=== PATIENT | female | born 1975 | race Caucasian/White ===

== ENCOUNTER 2024-09-02 10:40 | Day surgery (SDC) | payer OTHER ==
[~2024-09-02] VITALS: Ht 167.6 cm; Wt 54.3 kg
[2024-09-02] MEDS: ONDANSETRON 4MG 2ML VIAL IV ONE (11:27)
[2024-09-02] MEDS: KETOROLAC 30 MG/ML 1ML VIAL IV ONE (11:27)
[2024-09-02 11:30] LABS: BASO % 0.1 % (0.0-1.0); HEMATOCRIT 36.1 % (36.0-47.0); HEMOGLOBIN 11.8 g/dl (12.0-15.5); LYMPH # 0.8 10^3/uL (1.5-5.0); LYMPH % 9.7 % (24.0-44.0); MEAN CORPUSCULAR HEMOGLOBIN 29.1 pg (27.0-33.0); MEAN CORPUSCULAR HGB CONC 32.7 g/dl (32.0-36.5); MEAN CORPUSCULAR VOLUME 88.9 fl (80.0-96.0); MONO # 0.5 10^3/uL (0.0-0.8); MONO % 6.5 % (2.0-8.0); NEUTROPHILS # 6.8 10^3/uL (1.5-8.5); NEUTROPHILS % 83.5 % (36.0-66.0); PLATELET COUNT, AUTOMATED 255 10^3/uL (150-450); RED BLOOD COUNT 4.06 10^6/uL (4.00-5.40); WHITE BLOOD COUNT 8.1 10^3/uL (4.0-10.0)
[2024-09-02 11:35] LABS: KETONE, URINE AUTO RFX TRACE mg/dL (NEGATIVE); LEUKOCYTE ESTERASE UR AUTO RFX NEGATIVE (NEGATIVE); MUCUS, URINE RFX SMALL (NEGATIVE); NITRITE, URINE AUTO RFX NEGATIVE (NEGATIVE); RBC, URINE AUTO RFX 1 /HPF (0-3); SQUAM EPITHELIAL CELL UR AURFX 4 /HPF (0-6); WBC, URINE AUTO RFX 1 /HPF (0-3)
[2024-09-02 12:02] LABS: LIPASE 25 U/L (12-53)
[2024-09-02 12:04] LABS: ALBUMIN 3.7 G/DL (3.2-5.2); ALKALINE PHOSPHATASE 59 U/L (35-104); ALT/SGPT < 9 U/L (7.0-40); AST/SGOT 10 U/L (<34); BILIRUBIN,DIRECT 0.2 MG/DL (<0.4); BILIRUBIN,TOTAL 0.6 MG/DL (0.3-1.2); BLOOD UREA NITROGEN 11 MG/DL (9-23); CALCIUM LEVEL 7.9 MG/DL (8.5-10.1); CARBON DIOXIDE LEVEL 29 MMOL/L (20-31); CHLORIDE LEVEL 101 MMOL/L (98-107); GLOMERULAR FILTRATION RATE > 60.0 (>58); GLUCOSE, FASTING 88 MG/DL (60-100); POTASSIUM SERUM 4.3 MMOL/L (3.5-5.1); SODIUM LEVEL 140 MMOL/L (136-145); TOTAL PROTEIN 6.7 G/DL (5.7-8.2)
[2024-09-02] MEDS ORDERED: ISOVUE-370 76% 100ML VIAL As Ordered ONE (12:09)
[2024-09-02 12:22] LABS: HCG, SERUM QUALITATIVE NEGATIVE (NEGATIVE)
[2024-09-02] MEDS: PIPERACILLIN/TAZOBACTAM SOD 3.375 GM in DEXTROSE 5% (D5W) ADV/MINI-BAG 50 ML IV ONE (13:40)
[2024-09-02] MEDS ORDERED: HOME MED LIST COMPLETE! XX SCH (13:50)
[2024-09-02] MEDS ORDERED: diphenhydrAMINE 50MG/ML VIAL IV PRN (17:55)
[2024-09-02] MEDS ORDERED: NALBUPHINE HCL 10 MG/ML 1ML AMP IV PRN (17:55)
[2024-09-02] MEDS ORDERED: LR 1,000 ML IV SCH (17:55)
[2024-09-02] MEDS ORDERED: NORCO, ANEXSIA 5/325MG TABLET (HYDROcodone/ACETAMINOPHEN) PO PRN (17:55)
[2024-09-02] MEDS ORDERED: PROMETHAZINE 25MG/ML 1ML VIAL IV PRN (17:55)
[2024-09-02] MEDS ORDERED: propofoL 200 MG/20 ML VIAL As Ordered ONE (18:48)
[2024-09-02] MEDS ORDERED: fentaNYL 100 MCG/2 ML INJECTION As Ordered ONE (18:48)
[2024-09-02] MEDS ORDERED: MIDAZOLAM INJ 2MG/2ML VIAL As Ordered ONE (18:48)
[2024-09-02] MEDS ORDERED: ROCURONIUM BROMIDE 50MG/5ML VIAL As Ordered ONE (18:48)
[2024-09-02] MEDS ORDERED: LIDOCAINE 2% 100MG/5ML SDV (FOR ANES.) As Ordered ONE (18:48)
[2024-09-02] MEDS ORDERED: ONDANSETRON 4MG 2ML VIAL IV PRN (19:15)
[2024-09-02] MEDS ORDERED: ONDANSETRON 4MG 2ML VIAL As Ordered ONE (19:21)
[2024-09-02] MEDS: ZOSYN 3.375GM VIAL As Ordered ONE (19:24)
[2024-09-02] MEDS ORDERED: ACETAMINOPHEN 1000MG/100ML IV BAG As Ordered ONE (19:25)
[2024-09-02] MEDS ORDERED: SUGAMMADEX SODIUM 500 MG/5 ML VIAL (BRIDION) As Ordered ONE (19:35)
[2024-09-02] MEDS ORDERED: KETOROLAC 60MG 2ML VIAL As Ordered ONE (19:40)
[2024-09-02] MEDS ORDERED: HYDR-3715 PO (20:00)
[2024-09-02] MEDS: HYDROMORPHONE HCL 0.5 MG/ 0.5 ML SYRINGE IV PRN (20:03)
[2024-09-02 21:15] VITALS: BP 101/50; TEMP 97.8; O2SAT 100
[2024-09-02 21:44] VITALS: BP 90/56; TEMP 98.7; O2SAT 98
[2024-09-02] MEDS: NS (Normal Saline) 0.9% 1,000 ML IV SCH (22:12)
[2024-09-02] MEDS: NICOTINE 21MG/24HR 1 EA TRANSDERMAL TD ONE (22:13)
[2024-09-02] MEDS: SENOKOT S TAB PO SCH (22:13)
[2024-09-02] MEDS: NORCO, ANEXSIA 5/325MG TABLET (HYDROcodone/ACETAMINOPHEN) PO PRN (22:14)
[2024-09-02 22:15] VITALS: BP 84/46; TEMP 98.1; O2SAT 97
[2024-09-02] MEDS: KETOROLAC 30 MG/ML 1ML VIAL IV PRN (22:15)
[2024-09-02] MEDS: NS (Normal Saline) 0.9% 1,000 ML IV ONE (22:34)
[2024-09-02 23:15] VITALS: BP 88/51; TEMP 97.9
[2024-09-03] VITALS: BP 95/52; TEMP 97.4; TEMP 97.9; O2SAT 98
[2024-09-03 00:09] VITALS: BP 92/50
[2024-09-03] MEDS: PIPERACILLIN/TAZOBACTAM SOD 3.375 GM in DEXTROSE 5% (D5W) ADV/MINI-BAG 50 ML IV SCH (00:19)
[2024-09-03 01:00] VITALS: BP 90/50; TEMP 97.7; O2SAT 99
[2024-09-03 02:00] VITALS: BP 101/59; TEMP 97.7; O2SAT 99
[2024-09-03 05:35] VITALS: BP 116/65; TEMP 97.9; O2SAT 97
[2024-09-03 06:13] LABS: HEMATOCRIT 31.4 % (36.0-47.0); HEMOGLOBIN 10.1 g/dl (12.0-15.5); MEAN CORPUSCULAR HEMOGLOBIN 28.6 pg (27.0-33.0); MEAN CORPUSCULAR HGB CONC 32.2 g/dl (32.0-36.5); PLATELET COUNT, AUTOMATED 225 10^3/uL (150-450); RED BLOOD COUNT 3.53 10^6/uL (4.00-5.40); WHITE BLOOD COUNT 6.5 10^3/uL (4.0-10.0)
== END 2024-09-03 08:39 | disposition home or self-care (01) ==
LOC: M ED 10:40 → M SDC 16:28 → M RR INP 16:29 → UNDOADMOB 16:29 → M MSPAV 21:01 → M RR INP 21:01 → M SDC 09-03 08:39 → UNDODISOB 09-03 08:39
PROVIDERS: ATTEND Surgery
DX: K35.80 Unspecified acute appendicitis (principal); M54.9 Dorsalgia, unspecified; Z98.51 Tubal ligation status; F17.290 Nicotine dependence, other tobacco product, uncomplicated
CPT/HCPCS: 36415; 44970; 80047; 80048; 80076; 81001; 83690; 84703; 85025; 85027; 88304; 96365; 96366; 96375; 96376; 99284; J0131; J0665; J1100; J1171; J1885; J2250; J2405; J2543; J3010; Q9967

== ENCOUNTER 2024-10-08 02:28 | Emergency (ER) | payer OTHER ==
[~2024-10-08] VITALS: Ht 170.2 cm; Wt 55.0 kg
[~2024-10-08 02:28] MED LIST: HYDR-3715 PO
[2024-10-08 03:41] LABS: VENOUS BASE EXCESS 0.6 (-2.0-2.0); VENOUS PARTIAL PRESSURE CO2 44.8 mmHg (38.0-50.0); VENOUS PARTIAL PRESSURE O2 147.2 mmHg (30.0-50.0); VENOUS PH 7.382 UNITS (7.330-7.430); VENOUS STANDARD HCO3 25.1 MMOL/L; VENOUS TOTAL CO2 27.4 MMOL/L (24.0-28.0)
[2024-10-08 03:46] LABS: IONIZED CALCIUM 4.4 MG/DL (4.5-5.3)
[2024-10-08 04:00] LABS: HEMATOCRIT 33.2 % (36.0-47.0); MEAN CORPUSCULAR HEMOGLOBIN 28.4 pg (27.0-33.0); MEAN CORPUSCULAR HGB CONC 33.1 g/dl (32.0-36.5); MEAN CORPUSCULAR VOLUME 85.8 fl (80.0-96.0); PLATELET COUNT, AUTOMATED 268 10^3/uL (150-450); RED BLOOD COUNT 3.87 10^6/uL (4.00-5.40); WHITE BLOOD COUNT 5.6 10^3/uL (4.0-10.0)
[2024-10-08 04:13] LABS: AMPHETAMINES LEVEL URINE NEGATIVE (NEGATIVE); BARBITURATES URINE NEGATIVE (NEGATIVE); BENZODIAZEPINES URINE NEGATIVE (NEGATIVE); CANNABINOIDS URINE NEGATIVE (NEGATIVE); COCAINE METABOLITE URINE NEGATIVE (NEGATIVE); METHADONE URINE NEGATIVE (NEGATIVE); OPIATES URINE NEGATIVE (NEGATIVE); PHENCYCLIDINE URINE NEGATIVE (NEGATIVE)
[2024-10-08 04:17] LABS: ALBUMIN 3.3 G/DL (3.2-5.2); ALKALINE PHOSPHATASE 54 U/L (35-104); ALT/SGPT 9 U/L (7.0-40); AST/SGOT 8 U/L (<34); BILIRUBIN,DIRECT < 0.1 MG/DL (<0.4); BILIRUBIN,TOTAL 0.2 MG/DL (0.3-1.2); BLOOD UREA NITROGEN 11 MG/DL (9-23); CALCIUM LEVEL 7.6 MG/DL (8.5-10.1); CARBON DIOXIDE LEVEL 27 MMOL/L (20-31); CHLORIDE LEVEL 104 MMOL/L (98-107); CREATININE FOR GFR 0.63 MG/DL (0.55-1.30); GLOMERULAR FILTRATION RATE > 90.0 (>58); GLUCOSE, FASTING 90 MG/DL (60-100); MAGNESIUM LEVEL 1.7 MG/DL (1.8-2.4); PHOSPHORUS LEVEL 2.4 MG/DL (2.5-4.9); POTASSIUM SERUM 3.9 MMOL/L (3.5-5.1); SODIUM LEVEL 138 MMOL/L (136-145); TOTAL PROTEIN 5.8 G/DL (5.7-8.2)
[2024-10-08 04:19] LABS: PROLACTIN 61.11 NG/ML
[2024-10-08 04:29] LABS: LYMPHOCYTES 24 % (16-44); MONOCYTES 11 % (0-5); NEUTROPHILS 65 % (28-66)
[2024-10-08 04:30] LABS: PLATELET ESTIMATE NORMAL (NORMAL)
[2024-10-08] MEDS ORDERED: KEPP1TAB PO (05:40)
[2024-10-08] MEDS: levETIRAcetam INJection 1,000 MG in IV 1 EA IV ONE (05:59)
[2024-10-08] MEDS: CALCIUM GLUCONATE 1,000 MG in DEXTROSE 5% (D5W) MINI-BAG PLU 100 ML IV ONE (06:24)
[2024-10-08] MEDS: MAG SULF 1GM/100ML (MAG RUN) 1 GM in IV 1 EA IV ONE (06:24)
[2024-10-08 07:56] VITALS: BP 106/59; TEMP 96.8; O2SAT 99
== END 2024-10-08 07:57 | disposition home or self-care (01) ==
LOC: M ED 02:28 → EDBD 02:28 → M ED 07:57
DX: G40.89 Other seizures (principal); Z79.899 Other long term (current) drug therapy
CPT/HCPCS: 70450; 80048; 80076; 80307; 82140; 82330; 82803; 83605; 83735; 84100; 84146; 85025; 87486; 87581; 87633; 87798; 93041; 94760; 96365; 96366; 99285; J0612; J1953; J3475

== ENCOUNTER 2025-06-22 03:11 | Emergency (ER) | payer OTHER ==
[~2025-06-22] VITALS: Ht 167.6 cm; Wt 55.7 kg
[~2025-06-22 03:11] MED LIST changes: +KEPP1TAB PO
[2025-06-22 04:33] LABS: ALT/SGPT 13 U/L (7.0-40); AST/SGOT 21 U/L (<34); CALCIUM LEVEL 8.0 MG/DL (8.5-10.1); CARBON DIOXIDE LEVEL 27 MMOL/L (20-31); CHLORIDE LEVEL 106 MMOL/L (98-107); CREATININE FOR GFR 0.78 MG/DL (0.55-1.30); GLOMERULAR FILTRATION RATE > 90.0 (>58); MAGNESIUM LEVEL 1.7 MG/DL (1.8-2.4); PHOSPHORUS LEVEL 3.1 MG/DL (2.5-4.9); POTASSIUM SERUM 4.7 MMOL/L (3.5-5.1); SODIUM LEVEL 143 MMOL/L (136-145)
[2025-06-22 04:35] LABS: PROLACTIN 64.20 NG/ML
[2025-06-22 04:36] LABS: BASO # 0.0 10^3/uL (0.0-0.2); BASO % 0.3 % (0.0-1.0); EOS # 0.0 10^3/uL (0.0-0.5); EOS % 0.3 % (0.0-3.0); LYMPH # 1.4 10^3/uL (1.5-5.0); LYMPH % 35.6 % (24.0-44.0); MONO # 0.4 10^3/uL (0.0-0.8); MONO % 9.5 % (2.0-8.0); NEUTROPHILS # 2.1 10^3/uL (1.5-8.5); NEUTROPHILS % 54.3 % (36.0-66.0); PLATELET COUNT, AUTOMATED 247 10^3/uL (150-450)
[2025-06-22] MEDS: levETIRAcetam INJection 1,000 MG in IV 1 EA IV ONE (05:07)
[2025-06-22] MEDS: NS 500 ML IV ONE (05:07)
[2025-06-22] MEDS: MAG SULF 1GM/100ML (MAG RUN) 1 GM in IV 1 EA IV ONE (05:25)
[2025-06-22] MEDS: CALCIUM GLUCONATE 1,000 MG in DEXTROSE 5% (D5W) MINI-BAG PLU 100 ML IV ONE (06:49)
[2025-06-22 07:15] VITALS: TEMP 98.2
[2025-06-22 07:45] VITALS: BP 124/65
[2025-06-22 08:00] VITALS: O2SAT 97
== END 2025-06-22 09:40 | disposition home or self-care (01) ==
LOC: M ED 03:11
DX: G40.909 Epilepsy, unspecified, not intractable, without status epilepticus (principal); Z91.148 Patient's other noncompliance with medication regimen for other reason; I45.81 Long QT syndrome; Z79.899 Other long term (current) drug therapy
CPT/HCPCS: 80048; 80076; 82140; 82330; 83605; 83735; 84100; 84146; 85025; 93005; 93041; 94760; 96365; 96366; 96375; 99285; J0612; J1953; J3475